=== PATIENT | male | born 1980 | race Caucasian/White ===

== ENCOUNTER 2017-04-26 09:22 | Emergency (ER) | payer MEDICAID ==
[~2017-04-26] VITALS: Ht 182.9 cm; Wt 84.0 kg
[2017-04-26 09:25] VITALS: Ht 182.9 cm; Wt 84.0 kg
--- NOTE | 2017-04-26 11:41 | RADRPT ---
PROCEDURE: XR Ankle. CLINICAL INDICATION: Pain. TECHNIQUE: AP oblique and lateral views of the right ankle were performed. COMPARISON: None. FINDINGS: The osseous structures and articular spaces of the right ankle appear intact. There is an ossific de nsity seen inferior to the lateral malleolus probably an unfused ossicle. No acute fracture or disl ocation is seen. No radiopaque foreign body is identified. There is mild medial soft tissue swellin g. IMPRESSION: 1. Mild medial soft tissue swelling. 2. No acute fracture. 3. Unfused ossicle below the lateral malleolus.. RPTAT: QQ .Merrill Richardson MD, MD Date Time Electronically viewed and signed by .Merrill Richardson MD, on 04/26/2017 11:40 .L/
[2017-04-26] MEDS ORDERED: IBUP-1542 PO (12:24)
--- NOTE | 2017-04-26 12:33 | ERD ---
ER Documentation Chief Complaint Date/Time DATE: 04/26/17 TIME: 12:25 Chief Complaint rt ankle pain tripped over something last night HPI Patient is a 36-year-old male who presents to the emergency department with right ankle pain after tripping over a metal newspaper box 2 days ago. Patient reports pain with ambulating however he is able to bear weight to the affected extremity. Patient denies any fevers or chills. Patient denies any neck pain or back pain. Patient denies any falls or LOC.. Patient denies any previous injuries to the affected extremity. ROS All systems reviewed and are negative except as per history of present illness. Medications Home Meds Active Scripts Ibuprofen* (Motrin*) 600 Mg Tab, 600 MG PO Q6, #30 TAB Prov:MARTY GODINEZ PA-C 04/26/17 PMhx/Soc Medical and Surgical Hx: pt denies Medical Hx, pt denies Surgical Hx Hx Alcohol Use: No Hx Substance Use: No Smoking Status: Never smoker Physical Exam Vitals Vital Signs Date Time Temp Pulse Resp B/P Pulse Ox O2 Delivery O2 Flow Rate FiO2 04/26/17 09:25 98.1 80 18 122/80 99 Physical Exam GENERAL: Well-developed, well-nourished male. Appears in no acute distress. HEAD: Normocephalic, atraumatic. EYES: Pupils are equally reactive bilaterally. EOMs grossly intact. No conjunctival erythema. ENT: Moist mucous membranes. No uvula deviation. No kissing tonsils. NECK: Supple. No meningismus. Normal range of motion of the neck. LUNG: Clear to auscultation bilaterally. No rhonchi, wheezing, rales or coarse breath sounds. HEART: Regular rate and rhythm. No murmurs, rubs or gallops. EXTREMITIES: Equal pulses bilaterally. No peripheral clubbing, cyanosis or edema. No unilateral leg swelling. NEUROLOGIC: Alert and oriented. Moving all four extremities without any difficulty. Normal speech. Steady gait. SKIN: Normal color. Warm and dry. No rashes or lesions. RIGHT LE: No obvious deformity noted. Swelling noted to the patient's ankle. Small abrasion noted to the patient's ankle.. Decreased range of motion of the ankle secondary to swelling. Normal range of motion of the knee and toes.. Tender to palpation of the distal tib-fib, ankle and foot. Sensation intact to light touch. Neurovascularly intact. (Able to plantarflex, dorsiflex, jermaine foot , invert foot, raise big toe.) 2+ DP and DT pulses. Procedures/MDM ED COURSE: The patient was stable throughout ED course. I kept the patient and/or family informed of laboratory and diagnostic imaging results throughout the ED course. DIAGNOSTIC IMAGING: Read by radiologist. DIAGNOSTIC IMAGING REPORT Patient: SHARRON ELMORE : 1980 Age: 36 Sex: M MR #: [id number] DOS: 04/26/17 1006 Ordering MD: MARTY GODINEZ PA-C Location: [facility] Room/Bed: PROCEDURE: XR Ankle. CLINICAL INDICATION: Pain. TECHNIQUE: AP oblique and lateral views of the right ankle were performed. COMPARISON: None. FINDINGS: The osseous structures and articular spaces of the right ankle appear intact. There is an ossific density seen inferior to the lateral malleolus probably an unfused ossicle. No acute fracture or dislocation is seen. No radiopaque foreign body is identified. There is mild medial soft tissue swelling. IMPRESSION: 1. Mild medial soft tissue swelling. 2. No acute fracture. 3. Unfused ossicle below the lateral malleolus.. RPTAT: QQ .Merrill Richardson MD, Date Time Electronically viewed and signed by .Merrill Richardson MD, MD on 04/26/2017 11:40 .L/ CC: MARTY GODINEZ PA-C PROCEDURES: SPLINT APPLICATION: The patient was verbally consented at bedside prior to splint application. Patient was explained the risks, benefits and alternatives to this procedure. The patient was neurovascularly intact prior to and status post application of the splint. The patient tolerated the procedure well with no complications. Splint type: cristopher wrap Extremity: right ankle Indication: ankle sprain MEDICAL DECISION MAKING: This is a 36-year-old male who presents the ED with ankle pain 2 days. Patient states that he hit his foot and ankle against metal newspaper box while walking. Patient states he last received his tetanus vaccination 2 years ago. Vital signs were reviewed. Patient was afebrile. X-ray imaging of the ankle showed 1. Mild medial soft tissue swelling. 2. No acute fracture. 3. Unfused ossicle below the lateral malleolus. X-ray imaging of the tib-fib and foot was also ordered given the patient did also complain of distal tib-fib pain and foot pain. Patient declined x-ray of the tib-fib and foot given he did not want excessive radiation. I explained to the patient that I am unable to rule out any tibia/fibula acute processes including fractures or dislocations given that the patient declined x- ray imaging. Patient understands and is agreeable with this plan. At this time , patient's presentation is most consistent with ankle sprain. Patient was placed in Cristopher wrap. Patient was also given crutches to help with ambulating. Proper use of crutches provided by donor floor technician. Low suspicion for ankle dislocation , ankle fracture, gout, DVT, compartment syndrome. Unable to rule out any fractures or dislocations of the tibia, fibula or foot at this time. PRESCRIPTIONS: Ibuprofen DISCHARGE: At this time, patient is stable for discharge and outpatient management. Patient was given a copy of all imaging studies obtained today. RICE therapy and ROM exercises were advised to avoid stiffness. I have instructed the patient to follow-up with his/her primary care physician in 1-2 days. I have discussed with the patient the possibility of needing to see an marketing proposal specialist for further workup and imaging if the pain persists. I have instructed the patient to promptly return to the ER for any new or worsening symptoms including increased pain, swelling, redness, warmth or fever. The patient and/or family expressed understanding of and agreement with this plan. All questions were answered. Home care instructions were provided. Departure Diagnosis: Primary Impression: Ankle sprain Encounter type: initial encounter Involved ligament of ankle: unspecified ligament Laterality: right Qualified Code: S93.401A - Sprain of right ankle , unspecified ligament, initial encounter Condition: Stable Patient Instructions: Self-Care for Strains and Sprains Referrals: COMMUNITY CLINICS YOU HAVE RECEIVED A MEDICAL SCREENING EXAM AND THE RESULTS INDICATE THAT YOU DO NOT HAVE A CONDITION THAT REQUIRES URGENT TREATMENT IN THE EMERGENCY DEPARTMENT. FURTHER EVALUATION AND TREATMENT OF YOUR CONDITION CAN WAIT UNTIL YOU ARE SEEN IN YOUR DOCTORS OFFICE WITHIN THE NEXT 1-2 DAYS. IT IS YOUR RESPONSIBILITY TO MAKE AN APPOINTMENT FOR FOLOW-UP CARE. IF YOU HAVE A PRIMARY DOCTOR --you should call your primary doctor and schedule an appointment IF YOU DO NOT HAVE A PRIMARY DOCTOR YOU CAN CALL OUR PHYSICIAN REFERRAL HOTLINE AT IF YOU CAN NOT AFFORD TO SEE A PHYSICIAN YOU CAN CHOSE FROM THE FOLLOWING [facility] [address] [facility] [address] [facility] [address] [facility] [address] [facility] [address] [facility] [address] [facility]. [facility] YOU HAVE RECEIVED A MEDICAL SCREENING EXAM AND THE RESULTS INDICATE THAT YOU DO NOT HAVE A CONDITION THAT REQUIRES URGENT TREATMENT IN THE EMERGENCY DEPARTMENT. FURTHER EVALUATION AND TREATMENT OF YOUR CONDITION CAN WAIT UNTIL YOU ARE SEEN IN YOUR DOCTORS OFFICE WITHIN THE NEXT 1-2 DAYS. IT IS YOUR RESPONSIBILITY TO MAKE AN APPOINTMENT FOR FOLOW-UP CARE. IF YOU HAVE A PRIMARY DOCTOR --you should call your primary doctor and schedule and appointment IF YOU DO NOT HAVE A PRIMARY DOCTOR YOU CAN CALL OUR PHYSICIAN REFERRAL HOTLINE AT . IF YOU CAN NOT AFFORD TO SEE A PHYSICIAN YOU CAN CHOSE FROM THE FOLLOWING [facility]: [facility] [address] [place] [address] [facility] [address] [place] [address] [facility] [address] [place] [address] [facility] Hours: Mon-Fri 9:00 AM - 5:00 PM Additional Instructions: Call your primary care doctor TOMORROW for an appointment during the next 1-2 days.See the doctor sooner or return here if your condition worsens before your appointment time. Unable to rule out any tibia, fibula or foot fractures at this time given that patient declined x-ray imaging of these body parts. Follow up with an marketing proposal specialist if her pain persists. See referral information. MARTY GODINEZ PA-C Apr 26, 2017 12:33
== END 2017-04-26 12:46 | disposition home or self-care (01) ==
LOC: FTE 09:22
DX: S93.401A Sprain of unspecified ligament of right ankle, initial encounter (principal); W18.41XA Slipping, tripping and stumbling without falling due to stepping on object, initial encounter; Y92.9 Unspecified place or not applicable
CPT/HCPCS: 73610; Z7502